=== PATIENT | male | born 1995 | race Two or more races ===

== ENCOUNTER 2022-10-06 23:01 | Emergency (ER) | payer OTHER ==
[~2022-10-06] VITALS: Ht 170.2 cm; Wt 95.0 kg
[2022-10-06 23:01] VITALS: BP 138/88
== END 2022-10-07 00:36 | disposition home or self-care (01) ==
LOC: EDBD 23:01 → EEVIPCON 23:01 → ER 23:01
DX: S00.83XA Contusion of other part of head, initial encounter (principal); J01.90 Acute sinusitis, unspecified; Y04.8XXA Assault by other bodily force, initial encounter; Y93.89 Activity, other specified; Y92.89 Other specified places as the place of occurrence of the external cause; Y99.8 Other external cause status
CPT/HCPCS: 70450; 70486; 72125